=== PATIENT | female | born 1990 | race Caucasian/White ===

== ENCOUNTER 2020-01-06 09:11 | Observation (INO) | payer OTHER ==
[~2020-01-06] VITALS: Ht 157.5 cm; Wt 70.8 kg
[2020-01-06] MEDS ORDERED: PREN1TAB78 MT (09:29)
[2020-01-06] MEDS ORDERED: LACTATED RINGERS 1,000 ML IV SCH (11:00)
[2020-01-06] MEDS ORDERED: ACETAMINOPHEN 500MG TABLET PO NR (11:45)
[2020-01-06 12:17] LABS: BASOPHILS % 0.4 % (0.0-2.0); EOSINOPHILS % 1.4 % (0.0-5.0); HEMATOCRIT. 33.8 % (36.0-48.0); HEMOGLOBIN. 11.9 g/dL (12.0-16.0); LYMPHOCYTES % 24.8 % (20.0-50.0); MEAN CORPUSCULAR HEMOGLOBIN 33.5 pg (28.0-32.0); MEAN CORPUSCULAR VOLUME 94.9 fL (81.0-99.0); MEAN PLATELET VOLUME 7.5 fl (7.4-10.4); MONOCYTES % 6.7 % (2.0-8.0); NEUTROPHILS % 66.7 % (40.0-76.0); PLATELET 286 x1000/uL (130-400); RED BLOOD CELL COUNT 3.56 mill/uL (4.2-5.4); RED CELL DISTRIBUTION WIDTH 12.6 % (11.6-14.6)
[2020-01-06 12:22] LABS: CHLORIDE 108 mEq/L (98-107)
[2020-01-06 12:28] LABS: CLARITY URINE TURBID (CLEAR); COLOR URINE YELLOW (YELLOW); KETONES URINE NEGATIVE (NEGATIVE); LEUKOCYTE ESTERASE URINE 3+ (NEGATIVE); NITRITE URINE POSITIVE (NEGATIVE); OCCULT BLOOD URINE NEGATIVE (NEGATIVE); PH URINE 6.5 (4.5-8.0); PROTEIN URINE TRACE (NEGATIVE); SPECIFIC GRAVITY URINE 1.019 (1.005-1.030)
[2020-01-06] MEDS ORDERED: AMPICILLIN SOD/SULBACTAM NA 3 G in SODIUM CHLORIDE 0.9% 100 ML IV SCH (13:30)
== END 2020-01-06 15:00 | disposition home or self-care (01) ==
LOC: 8 EST LDRP 09:11
PROVIDERS: ADMIT Obstetrics & Gynecology; ATTEND Obstetrics & Gynecology
DX: O36.8130 Decreased fetal movements, third trimester, not applicable or unspecified (principal); O99.89 Other specified diseases and conditions complicating pregnancy, childbirth and the puerperium; R51 Headache; Z3A.33 33 weeks gestation of pregnancy; Z79.899 Other long term (current) drug therapy
CPT/HCPCS: 36415; 59025; 76805; 76818; 80053; 81003; 85025; 87077; 87086; 87186; 96361; 96365; G0378; J0295; J7050; 96372; 99281; J7120

== ENCOUNTER 2020-02-06 10:47 | Inpatient (IN) | payer OTHER ==
[~2020-02-06] VITALS: Ht 157.5 cm; Wt 72.6 kg
[~2020-02-06 10:47] MED LIST: PREN1TAB78 MT
[2020-02-06] MEDS ORDERED: DEXT 5%/LACTATED RINGERS 1,000 ML IV SCH (12:30)
[2020-02-06] MEDS ORDERED: BUTORPHANOL TARTRATE 2 MG/ML VIAL IV PRN ×2 (14:15→23:30)
[2020-02-06] MEDS: LACTATED RINGERS 1,000 ML IV SCH ×2 (14:26→18:41)
[2020-02-06 15:01] LABS: BASOPHILS % 0.6 % (0.0-2.0); EOSINOPHILS % 0.6 % (0.0-5.0); HEMATOCRIT. 38.9 % (36.0-48.0); HEMOGLOBIN. 13.2 g/dL (12.0-16.0); LYMPHOCYTES % 20.1 % (20.0-50.0); MEAN CORPUSCULAR HEMOGLOBIN 32.7 pg (28.0-32.0); MEAN CORPUSCULAR VOLUME 95.9 fL (81.0-99.0); MEAN PLATELET VOLUME 7.5 fl (7.4-10.4); MONOCYTES % 6.4 % (2.0-8.0); NEUTROPHILS % 72.3 % (40.0-76.0); PLATELET 281 x1000/uL (130-400); RED BLOOD CELL COUNT 4.05 mill/uL (4.2-5.4); RED CELL DISTRIBUTION WIDTH 13.5 % (11.6-14.6)
[2020-02-06 15:03] LABS: CLARITY URINE CLEAR (CLEAR); COLOR URINE YELLOW (YELLOW); KETONES URINE NEGATIVE (NEGATIVE); LEUKOCYTE ESTERASE URINE 1+ (NEGATIVE); NITRITE URINE NEGATIVE (NEGATIVE); OCCULT BLOOD URINE NEGATIVE (NEGATIVE); PROTEIN URINE NEGATIVE (NEGATIVE); SPECIFIC GRAVITY URINE 1.022 (1.005-1.030)
[2020-02-06 15:14] LABS: INR 0.9; PARTIAL THROMBOPLASTIN TIME 30.3 sec (23.4-31.0); PROTHROMBIN TIME 9.8 sec (9.6-11.0)
[2020-02-06 15:24] LABS: CANNABINOID URINE SCREEN NEGATIVE (NEGATIVE); PHENCYCLIDINE URINE SCREEN NEGATIVE (NEGATIVE)
[2020-02-06 15:25] LABS: *AMPHETAMINES SCREEN URINE NEGATIVE (NEGATIVE)
[2020-02-06 15:26] LABS: *BARBITURATES SCREEN URINE NEGATIVE (NEGATIVE); *COCAINE SCREEN URINE NEGATIVE (NEGATIVE); OPIATES URINE SCREEN NEGATIVE (NEGATIVE)
[2020-02-06 15:28] LABS: *BENZODIAZEPINES SCREEN URINE NEGATIVE (NEGATIVE); METHADONE URINE SCREEN NEGATIVE (NEGATIVE)
[2020-02-06] MEDS ORDERED: OXYTOCIN 10 UNITS/ML 1ML ONE (18:52)
[2020-02-06] MEDS ORDERED: CEFAZOLIN SODIUM 1000MG/VIAL ONE (18:52)
[2020-02-06] MEDS ORDERED: ONDANSETRON HCL 4MG/2ML INJ ONE (18:52)
[2020-02-06] MEDS ORDERED: GLYCOPYRROLATE 0.2 MG/ML 2ML VIAL ONE (18:52)
[2020-02-06] MEDS ORDERED: FENTANYL CITRATE/PF 50MCG/ML 2ML VIAL ONE (18:52)
[2020-02-06] MEDS ORDERED: CITRIC ACID/SODIUM CITRATE SOLN 30ML UDC PO NR (21:45)
[2020-02-06] MEDS ORDERED: DIPHENHYDRAMINE 50MG/ML VIAL ONE (22:59)
[2020-02-06] MEDS ORDERED: KETOROLAC 60MG/2ML VIAL IM ONE (22:59)
[2020-02-06] MEDS ORDERED: LIDOCAINE HCL/PF 1% 10 MG/ML 5ML VIAL ONE (23:04)
[2020-02-06] MEDS ORDERED: DEXT 5%/LR + PITOCIN 20UNITS/L 1,000 ML IV SCH (23:19)
[2020-02-06] MEDS ORDERED: ONDANSETRON HCL 4MG/2ML INJ IV PRN (23:30)
[2020-02-06] MEDS ORDERED: HEMORRHOIDAL SUPP PR PRN (23:30)
[2020-02-06] MEDS ORDERED: DIPHENHYDRAMINE 50MG/ML VIAL IV PRN (23:30)
[2020-02-06] MEDS ORDERED: LANOLIN OINT 7GM TUBE TOP PRN (23:30)
[2020-02-06] MEDS ORDERED: NALOXONE HCL 0.4 MG/ML 1ML VIAL IV PRN (23:30)
[2020-02-06] MEDS ORDERED: DIPHENHYDRAMINE 25MG CAPSULE PO PRN (23:30)
[2020-02-06] MEDS ORDERED: BISACODYL 10MG SUPP PR PRN (23:30)
[2020-02-06] MEDS ORDERED: IBUPROFEN 400MG TABLET PO PRN (23:30)
[2020-02-07 01:45] VITALS: BP 127/80
[2020-02-07 02:15] VITALS: BP 123/71
[2020-02-07 04:00] VITALS: BP 128/69
[2020-02-07] MEDS: KETOROLAC 30MG/ML VIAL IV SCH ×2 (06:00→06:26)
[2020-02-07 08:00] VITALS: BP 97/60
[2020-02-07] MEDS ORDERED: PRENATAL VIT/FE FUMARATE/FA TABLET PO SCH (09:00)
[2020-02-07 09:05] LABS: BASOPHILS % 0.3 % (0.0-2.0); EOSINOPHILS % 0.3 % (0.0-5.0); HEMOGLOBIN. 10.7 g/dL (12.0-16.0); LYMPHOCYTES % 15.7 % (20.0-50.0); MEAN CORPUSCULAR VOLUME 95.3 fL (81.0-99.0); MEAN PLATELET VOLUME 7.5 fl (7.4-10.4); MONOCYTES % 5.7 % (2.0-8.0); PLATELET 237 x1000/uL (130-400); RED BLOOD CELL COUNT 3.25 mill/uL (4.2-5.4); RED CELL DISTRIBUTION WIDTH 13.7 % (11.6-14.6)
[2020-02-07] MEDS: FERROUS SULFATE 325MG TABLET PO SCH ×3 (09:09→13:30)
[2020-02-07] MEDS: MAGNESIUM/ALUMINUM HYDROXIDE/SIMETHICONE 30ML UDC PO SCH ×3 (09:09→13:30)
[2020-02-07] MEDS: SIMETHICONE 80MG TABLET CHEW PO SCH ×3 (09:09→13:30)
[2020-02-07] MEDS: IBUPROFEN 800MG TABLET PO PRN (13:31)
[2020-02-07 14:55] VITALS: BP 104/71
[2020-02-07 16:51] LABS: HEPATITIS B SURFACE ANTIGEN NEGATIVE
[2020-02-07] MEDS: HYDROCODONE/ACETAMINOPHEN 5/325MG TABLET PO PRN (19:38)
[2020-02-07 20:00] VITALS: BP 104/71
[2020-02-07] MEDS ORDERED: DOCUSATE SODIUM 100MG CAPSULE PO SCH (21:00)
[2020-02-08] VITALS: BP 106/67
[2020-02-08] MEDS: HYDROCODONE/ACETAMINOPHEN 5/325MG TABLET PO PRN (00:13)
[2020-02-08 04:00] VITALS: BP 104/68
[2020-02-08] MEDS: IBUPROFEN 800MG TABLET PO PRN (04:19)
[2020-02-08] MEDS ORDERED: FERR325T23 PO (07:13)
[2020-02-08] MEDS ORDERED: IBUP-2030 PO (07:13)
== END 2020-02-08 11:40 | disposition home or self-care (01) | DRG 785 ==
LOC: 8 EST LDRP 10:47 → OBSVTOIN 10:47 → 8EST 02-07 07:08
PROVIDERS: ADMIT Obstetrics & Gynecology; ATTEND Obstetrics & Gynecology
PROC: 10D00Z1 Extraction of Products of Conception, Low, Open Approach (ICD-10-PCS; principal; 2020-02-08)
PROC: 0UB70ZZ Excision of Bilateral Fallopian Tubes, Open Approach (ICD-10-PCS; 2020-02-08)
DX: O34.211 Maternal care for low transverse scar from previous cesarean delivery (principal); O99.02 Anemia complicating childbirth; Z30.2 Encounter for sterilization; Z37.0 Single live birth; Z3A.38 38 weeks gestation of pregnancy
CPT/HCPCS: 36415; 80305; 81003; 85025; 86592; 86703; 86762; 86850; 86900; 87340; 88302; 88307; 99281; G0378; J0595; J0690; J1200; J1885; J2405; J2590; J3010; J3490; J7120; J7121; Q0163